=== PATIENT | female | born 1990 | race Caucasian/White ===

== ENCOUNTER 2017-02-10 20:22 | Emergency (ER) | payer MEDICAID ==
[~2017-02-10 20:22] MED LIST: IBU-200200 MG PO; TYLENOL #31 TA1 PO
== END 2017-02-10 21:47 ==
LOC: EDMED 20:22
PROC: 2W3CX1Z Immobilization of Right Lower Arm using Splint (ICD-10-PCS; principal; 2017-02-10)
DX: S60.221A Contusion of right hand, initial encounter (principal); W22.01XA Walked into wall, initial encounter; F17.210 Nicotine dependence, cigarettes, uncomplicated